=== PATIENT | female | born 1965 | race Caucasian/White ===

== ENCOUNTER 2018-01-15 19:23 | Emergency (ER) | payer OTHER ==
[2018-01-15] MEDS: KETOROLAC 60 MG INJ IM (20:58)
== END 2018-01-15 21:15 | disposition home or self-care (01) ==
LOC: FTE 19:23
DX: S16.1XXA Strain of muscle, fascia and tendon at neck level, initial encounter (principal); S39.012A Strain of muscle, fascia and tendon of lower back, initial encounter; V89.2XXA Person injured in unspecified motor-vehicle accident, traffic, initial encounter
CPT/HCPCS: 96372; 99284-25